=== PATIENT | male | born 1975 | race American Indian/Alaskan Native ===

== ENCOUNTER 2016-05-16 00:17 | Emergency (ER) | payer SELFPAY ==
[2016-05-16 01:21] VITALS: BP 137/83
[2016-05-16 02:01] LABS: Basophils % (Auto) 0.6 % (0.0-1.8); Eosinophils % (Auto) 0.6 % (0.0-4.3); Hematocrit 41.7 % (35.5-45.6); Hemoglobin 13.8 gm/dl (11.8-15.2); Mean Corpuscular HGB Conc 33 % (32-34); Mean Corpuscular Hemoglobin 28 pg (28-32); Mean Corpuscular Volume 86 fl (84-94); Platelet Count 178 K/mm3 (140-440); Red Blood Count 4.86 M/mm3 (3.65-5.03); Red Cell Distribution Width 14.2 % (13.2-15.2); White Blood Count 8.7 K/mm3 (4.5-11.0)
[2016-05-16 02:18] LABS: Anion Gap 22 mmol/L; Blood Urea Nitrogen 18 mg/dL (9-20); Calcium 9.9 mg/dL (8.4-10.2); Carbon Dioxide 25 mmol/L (22-30); Chloride 94.2 mmol/L (98-107); Glucose 101 mg/dL (75-100); Magnesium 2.2 mg/dL (1.7-2.3); Potassium 3.7 mmol/L (3.6-5.0); Sodium 137 mmol/L (137-145)
[2016-05-16] MEDS ORDERED: MOTRIN PO ONE (03:08)
[2016-05-16] MEDS ORDERED: FLEXERIL PO ONE (03:08)
--- NOTE | 2016-05-16 03:08 | Emergency Department Report ---
ED General Adult HPI - General Chief complaint: Pain General Stated complaint: MUSCLE/SIDE/NECK/BACK/FEET PAIN Source: patient Mode of arrival: Ambulatory Limitations: No Limitations - History of Present Illness Initial comments: Patient here complaining of cramping to his body for 10 years. Denies any fever or chills. Denies any nausea or vomiting. Denies any abdominal pain he said this cramping is located over and has been going on and off for 10 years and today at 6 out of 10. This is not constant and he hasn't taken any medication today but sometimes he takes pain medication. He has not sought medical attention for 10 years of cramping to his entire body. He reports it's mostly to his joints. Patient denies any chest pain or shortness of breath. Denies any joint redness or swelling. MD Complaint: body cramping Onset/Timin -: year(s) Location: back, left, right, upper extremity, lower extremity Radiation: non-radiation Severity scale (0 -10): 6 Quality: other (cramping) Consistency: intermittent Improves with: none Worsens with: none Associated Symptoms: denies: confusion, chest pain, cough, diaphoresis, fever/ chills, headaches, loss of appetite, malaise, nausea/vomiting, rash, seizure, shortness of breath, syncope, weakness Treatments Prior to Arrival: none - Related Data Previous Rx's Medication Instructions Recorded Last Taken Type Cyclobenzaprine [Flexeril] 10 mg PO TID PRN #15 tablet 05/16/16 Unknown Rx Ibuprofen [Motrin] 600 mg PO Q8H PRN #15 tablet 05/16/16 Unknown Rx Allergies Allergy/AdvReac Type Severity Reaction Status Date / Time No Known Allergies Allergy Verified 05/16/16 01:11 ED Review of Systems ROS: Stated complaint: MUSCLE/SIDE/NECK/BACK/FEET PAIN Other details as noted in HPI Comment: All other systems reviewed and negative Constitutional: denies: chills, fever Eyes: denies: eye pain ENT: denies: throat pain, congestion Respiratory: no symptoms reported Cardiovascular: denies: chest pain, palpitations, edema, syncope Gastrointestinal: denies: abdominal pain, nausea, vomiting, diarrhea Genitourinary: denies: urgency, dysuria, frequency, hematuria, discharge, testicular pain, testicular mass Musculoskeletal: arthralgia, other (body cramping generalized for 10 years). denies: back pain Skin: denies: rash Neurological: denies: headache, weakness, numbness, paresthesias, confusion, abnormal gait, vertigo ED Past Medical Hx - Past Medical History Previous Medical History?: Yes Additional medical history: Cramps - Surgical History Past Surgical History?: No - Family History Family history: no significant - Social History Smoking Status: Current Every Day Smoker Substance Use Type: Alcohol - Medications Home Medications: Home Medications Medication Instructions Recorded Confirmed Last Taken Type Cyclobenzaprine [Flexeril] 10 mg PO TID PRN #15 tablet 05/16/16 Unknown Rx Ibuprofen [Motrin] 600 mg PO Q8H PRN #15 tablet 05/16/16 Unknown Rx ED Physical Exam - General Limitations: No Limitations General appearance: alert, in no apparent distress - Head Head exam: Present: atraumatic, normocephalic, normal inspection - Eye Eye exam: Present: normal appearance, PERRL, EOMI. Absent: periorbital swelling , periorbital tenderness Pupils: Present: normal accommodation - ENT ENT exam: Present: normal exam, normal orophraynx, mucous membranes moist, TM's normal bilaterally, normal external ear exam - Neck Neck exam: Present: normal inspection, full ROM. Absent: tenderness, meningismus, lymphadenopathy - Respiratory Respiratory exam: Present: normal lung sounds bilaterally. Absent: respiratory distress, chest wall tenderness - Cardiovascular Cardiovascular Exam: Present: regular rate, normal rhythm, normal heart sounds - GI/Abdominal GI/Abdominal exam: Present: soft, normal bowel sounds. Absent: distended, tenderness, guarding, rebound, rigid - Extremities Exam Extremities exam: Present: normal inspection, full ROM, normal capillary refill , other (no neurovascular compromise, pulses are 2+, capillary refill is less than 3 seconds. No signs of tendon or ligament injury. No clubbing cyanosis or edema.). Absent: tenderness, pedal edema, joint swelling, calf tenderness - Back Exam Back exam: Present: normal inspection, full ROM. Absent: tenderness, CVA tenderness (R), CVA tenderness (L), muscle spasm, paraspinal tenderness, vertebral tenderness, rash noted - Neurological Exam Neurological exam: Present: alert, oriented X3, normal gait, reflexes normal. Absent: motor sensory deficit - Psychiatric Psychiatric exam: Present: normal affect, normal mood - Skin Skin exam: Present: warm, dry, intact, normal color. Absent: rash ED Course Vital Signs 05/16/16 05/16/16 01:12 03:15 Temperature 98.2 F Pulse Rate 85 Respiratory 18 18 Rate Blood Pressure 137/83 [Right] O2 Sat by Pulse 98 Oximetry - Reevaluation(s) Reevaluation #1: 05/16/16 07:08 Patient ordered Flexeril and Motrin to get in emergency room but he left before he could receive it ED Medical Decision Making - Lab Data Result diagrams: 05/16/16 01:40 05/16/16 01:40 Lab Results 05/16/16 05/16/16 Range/Units 01:40 01:40 WBC 8.7 (4.5-11.0) K/mm3 RBC 4.86 (3.65-5.03) M/mm3 Hgb 13.8 (11.8-15.2) gm/dl Hct 41.7 (35.5-45.6) % MCV 86 (84-94) fl MCH 28 (28-32) pg MCHC 33 (32-34) % RDW 14.2 (13.2-15.2) % Plt Count 178 (140-440) K/mm3 Lymph % (Auto) 18.6 (13.4-35.0) % Tyrrell % (Auto) 6.5 (0.0-7.3) % Eos % (Auto) 0.6 (0.0-4.3) % Baso % (Auto) 0.6 (0.0-1.8) % Lymph # 1.6 (1.2-5.4) K/mm3 Tyrrell # 0.6 (0.0-0.8) K/mm3 Eos # 0.0 (0.0-0.4) K/mm3 Baso # 0.1 (0.0-0.1) K/mm3 Seg Neutrophils % 73.7 H (40.0-70.0) % Seg Neutrophils # 6.4 (1.8-7.7) K/mm3 Sodium 137 (137-145) mmol/L Potassium 3.7 (3.6-5.0) mmol/L Chloride 94.2 L (98-107) mmol/L Carbon Dioxide 25 (22-30) mmol/L Anion Gap 22 mmol/L BUN 18 (9-20) mg/dL Creatinine 1.0 (0.8-1.5) mg/dL Estimated GFR > 60 ml/min BUN/Creatinine Ratio 18.00 % Glucose 101 H (75-100) mg/dL Calcium 9.9 (8.4-10.2) mg/dL Magnesium 2.2 (1.7-2.3) mg/dL - Medical Decision Making ED course: I discussed with the patient that his lab work is within normal limits and he is been having in chronic joint pain and cramping and he will need to follow up with primary care physician and 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 I discussed with him that I will put him on Motrin and Flexeril and refer him to [facility] because he said he doesn't have a primary care physician. Prescription written for Motrin and Flexeril. Patient verbalized understanding of diagnosis and treatment plan. Nurse Reports that she went to give patient discharged with work and pain medication and he left without discharge paperwork. Patient is low suspicion for rhabdo since he is been having this condition ongoing on and off for 10 years. Critical care attestation.: If time is entered above; I have spent that time in minutes in the direct care of this critically ill patient, excluding procedure time. ED Disposition Clinical Impression: Cramps, extremity, Arthralgia of multiple sites Disposition: DISCHARGED TO HOME OR SELFCARE Is pt being admited?: No Does the pt Need Aspirin: No Condition: Stable Instructions: Arthralgia (ED), Muscle Cramp (ED) Prescriptions: Cyclobenzaprine [Flexeril] 10 mg PO TID PRN #15 tablet PRN Reason: Muscle Spasm Ibuprofen [Motrin] 600 mg PO Q8H PRN #15 tablet PRN Reason: Pain Referrals: [facility] [Outside] - 2-3 Days
== END 2016-05-16 03:15 | disposition home or self-care (01) ==
LOC: ED 00:17
DX: M79.621 Pain in right upper arm (principal); M54.9 Dorsalgia, unspecified; F17.200 Nicotine dependence, unspecified, uncomplicated
CPT/HCPCS: 36415; 80048; 83735; 85025; 99282